=== PATIENT | male | born 1980 | race Caucasian/White ===

== ENCOUNTER 2024-04-11 07:10 | Day surgery (SDC) | payer OTHER ==
[~2024-04-11 07:10] MED LIST: SODIUM CHLORIDE 0.9% 1,000 ML IV ONE; SODIUM CHLORIDE 0.9% 1,000 ML ONE
== END 2024-04-11 07:40 | disposition home or self-care (01) ==
LOC: SURGERY 07:10
PROVIDERS: ATTEND Internal Medicine Critical Care Medicine
DX: R05.3 Chronic cough (principal); Z53.8 Procedure and treatment not carried out for other reasons
CPT/HCPCS: J7030